=== PATIENT | male | born 1965 | race Caucasian/White ===

== ENCOUNTER 2020-11-05 15:51 | Inpatient (IN) | payer MEDICAID ==
[~2020-11-05] VITALS: Ht 177.8 cm; Wt 93.7 kg
[2020-11-05] MEDS ORDERED: HALOPERIDOL LACTATE 5 MG/ML VIAL IM ONE ×2 (16:45→21:15)
[2020-11-05] MEDS ORDERED: LORazepam 2 MG/ML VIAL IM ONE ×2 (16:45→21:15)
[2020-11-05] MEDS ORDERED: FLUO-191 PO (21:55)
[2020-11-05] MEDS ORDERED: CARI350T26 PO (21:55)
[2020-11-05] MEDS ORDERED: TAMS-13 PO (21:55)
[2020-11-05] MEDS ORDERED: PREG50 PO (21:55)
[2020-11-05] MEDS ORDERED: VENL-53 PO (21:55)
[2020-11-05] MEDS ORDERED: DIAZ5TAB5 PO (21:55)
[2020-11-05] MEDS ORDERED: HALOPERIDOL 5 MG TABLET PO PRN (22:15)
[2020-11-06 00:25] LABS: COVID AG,FIA SOURCE NASOPHARYNGEAL
[2020-11-06 07:45] LABS: APPEARANCE,URINE CLEAR (CLEAR); BILIRUBIN,URINE NEGATIVE (NEGATIVE); GLUCOSE, URINE (UA) NEGATIVE (NEGATIVE); KETONES,URINE NEGATIVE (NEGATIVE); LEUKOCYTE ESTERASE ,URINE NEGATIVE (NEGATIVE); NITRATE,URINE NEGATIVE (NEGATIVE); OCCULT BLOOD,URINE NEGATIVE (NEGATIVE); PH,URINE 6.5 (5.0-8.0); PROTEIN,URINE NEGATIVE (NEGATIVE)
[2020-11-06 07:49] LABS: AMPHET/METH SCREEN,URINE NEGATIVE (NEGATIVE); BARBITURATE SCREEN, URINE NEGATIVE (NEGATIVE); BENZODIAZEPINES SCREEN,URINE POSITIVE (NEGATIVE); CANNABINOID SCREEN,URINE POSITIVE (NEGATIVE); COCAINE SCREEN,URINE NEGATIVE (NEGATIVE); METHADONE SCREEN, URINE NEGATIVE (NEGATIVE); OPIATE SCREEN,URINE NEGATIVE (NEGATIVE)
[2020-11-06 07:53] LABS: PHENCYCLIDINE SCREEN,URINE NEGATIVE (NEGATIVE)
[2020-11-06 21:51] VITALS: BP 116/81
[2020-11-07] MEDS ORDERED: ALBUTEROL SULFATE HFA 90 MCG/PUFF 8 GM INHALER IH PRN (06:30)
[2020-11-07] MEDS ORDERED: PETROLATUM,WHITE 28 GM JELLY TP PRN (06:30)
[2020-11-07] MEDS ORDERED: LOPERAMIDE HCL 2 MG CAPSULE PO PRN (06:30)
[2020-11-07] MEDS ORDERED: DOCUSATE SODIUM 100 MG CAPSULE PO PRN (06:30)
[2020-11-07] MEDS ORDERED: MAG HYDROX/AL HYDROX/SIMETH ES 30 ML SUSPENSION UDCUP PO PRN (06:30)
[2020-11-07] MEDS ORDERED: GuaiFENesin/D-METHORPHAN [SUGAR-FREE] 200-20MG/10 ML SYRUP UDCUP PO PRN (06:30)
[2020-11-07] MEDS ORDERED: CloNIDine HCL 0.1 MG TABLET PO PRN (06:30)
[2020-11-07] MEDS ORDERED: ONDANSETRON HCL 4 MG TABLET PO PRN (06:30)
[2020-11-07] MEDS ORDERED: MAGNESIUM HYDROXIDE SUSPENSION 30 ML UDCUP PO PRN (06:30)
[2020-11-07 09:00] VITALS: BP 114/68
[2020-11-07] MEDS: VENLAFAXINE HCL 37.5 MG ER CAPSULE PO SCH ×2 (13:15→13:40)
[2020-11-07 16:17] VITALS: BP 119/79
[2020-11-07] MEDS: OLANZapine 5 MG TABLET PO SCH (16:42)
[2020-11-07] MEDS: FLUoxetine HCL 20 MG CAPSULE PO SCH (16:42)
[2020-11-07] MEDS: PREGABALIN 50 MG CAPSULE PO SCH (17:00)
[2020-11-07 20:35] VITALS: BP 118/78
[2020-11-07] MEDS: CARISOPRODOL 350 MG TABLET PO PRN (20:40)
[2020-11-07] MEDS: OxyCODONE HCL 10 MG ER TABLET PO PRN (20:43)
[2020-11-07] MEDS: TAMSULOSIN HCL 0.4 MG CAPSULE PO SCH (20:52)
[2020-11-08] MEDS: VENLAFAXINE HCL 37.5 MG ER CAPSULE PO SCH (07:50)
[2020-11-08] MEDS: PREGABALIN 50 MG CAPSULE PO SCH ×3 (07:53→17:30)
[2020-11-08] MEDS: OLANZapine 5 MG TABLET PO SCH ×2 (07:53→17:30)
[2020-11-08] MEDS: FLUoxetine HCL 20 MG CAPSULE PO SCH ×2 (07:53→17:30)
[2020-11-08] MEDS: CARISOPRODOL 350 MG TABLET PO PRN ×2 (07:55→17:38)
[2020-11-08] MEDS: OxyCODONE HCL 10 MG ER TABLET PO PRN ×2 (07:58→17:35)
[2020-11-08 08:20] VITALS: BP 120/80
[2020-11-08 17:11] VITALS: BP 117/76
[2020-11-08 17:45] VITALS: BP 120/76
[2020-11-08 18:35] VITALS: BP 118/80
[2020-11-08] MEDS: TAMSULOSIN HCL 0.4 MG CAPSULE PO SCH (20:41)
[2020-11-08 21:00] VITALS: BP 120/82
[2020-11-08] MEDS: IBUPROFEN 400 MG TABLET PO PRN (21:02)
[2020-11-08 22:00] VITALS: BP 117/76
[2020-11-09] MEDS: OxyCODONE HCL 10 MG ER TABLET PO PRN ×2 (07:08→18:05)
[2020-11-09] MEDS: CARISOPRODOL 350 MG TABLET PO PRN ×2 (07:15→19:30)
[2020-11-09 08:00] VITALS: BP 98/61
[2020-11-09] MEDS: OLANZapine 5 MG TABLET PO SCH ×2 (08:20→16:21)
[2020-11-09] MEDS: FLUoxetine HCL 20 MG CAPSULE PO SCH ×2 (08:20→16:21)
[2020-11-09] MEDS: VENLAFAXINE HCL 37.5 MG ER CAPSULE PO SCH (08:20)
[2020-11-09] MEDS: PREGABALIN 50 MG CAPSULE PO SCH ×3 (08:21→16:21)
[2020-11-09 18:05] VITALS: BP 110/66
[2020-11-09 19:30] VITALS: BP 108/64
[2020-11-09] MEDS: TAMSULOSIN HCL 0.4 MG CAPSULE PO SCH (20:51)
[2020-11-10 08:09] VITALS: BP 122/74
[2020-11-10] MEDS: VENLAFAXINE HCL 37.5 MG ER CAPSULE PO SCH (10:07)
[2020-11-10] MEDS: OLANZapine 5 MG TABLET PO SCH ×2 (10:10→17:08)
[2020-11-10] MEDS: CARISOPRODOL 350 MG TABLET PO PRN ×2 (10:10→21:42)
[2020-11-10] MEDS: FLUoxetine HCL 20 MG CAPSULE PO SCH ×2 (10:11→17:08)
[2020-11-10] MEDS: PREGABALIN 50 MG CAPSULE PO SCH ×3 (10:11→17:08)
[2020-11-10] MEDS: OxyCODONE HCL 10 MG ER TABLET PO PRN ×2 (10:18→20:26)
[2020-11-10] MEDS: IBUPROFEN 400 MG TABLET PO PRN (16:01)
[2020-11-10 16:19] VITALS: BP 120/79
[2020-11-10] MEDS: TAMSULOSIN HCL 0.4 MG CAPSULE PO SCH (20:26)
[2020-11-10 21:26] VITALS: BP 100/63
[2020-11-11 08:00] VITALS: BP 119/83
[2020-11-11] MEDS: CARISOPRODOL 350 MG TABLET PO PRN ×2 (08:16→17:45)
[2020-11-11] MEDS: VENLAFAXINE HCL 37.5 MG ER CAPSULE PO SCH (08:16)
[2020-11-11] MEDS: OxyCODONE HCL 10 MG ER TABLET PO PRN ×2 (08:17→17:45)
[2020-11-11] MEDS: FLUoxetine HCL 20 MG CAPSULE PO SCH ×2 (08:17→17:04)
[2020-11-11] MEDS: PREGABALIN 50 MG CAPSULE PO SCH ×3 (08:17→17:04)
[2020-11-11] MEDS: OLANZapine 5 MG TABLET PO SCH ×2 (08:17→17:04)
[2020-11-11 16:22] VITALS: BP 97/63
[2020-11-11 17:45] VITALS: BP 110/73
[2020-11-11] MEDS: TAMSULOSIN HCL 0.4 MG CAPSULE PO SCH (20:26)
[2020-11-12 05:05] VITALS: BP 115/65
[2020-11-12] MEDS: IBUPROFEN 400 MG TABLET PO PRN ×2 (05:05→20:56)
[2020-11-12] MEDS: OLANZapine 5 MG TABLET PO SCH ×2 (08:30→16:36)
[2020-11-12] MEDS: PREGABALIN 50 MG CAPSULE PO SCH ×3 (08:30→16:36)
[2020-11-12] MEDS: FLUoxetine HCL 20 MG CAPSULE PO SCH ×2 (08:30→16:35)
[2020-11-12] MEDS: VENLAFAXINE HCL 37.5 MG ER CAPSULE PO SCH (08:31)
[2020-11-12 08:52] VITALS: BP 104/67
[2020-11-12 09:13] LABS: COVID AG,FIA SOURCE NASOPHARYNGEAL
[2020-11-12 16:07] VITALS: BP 117/77
[2020-11-12] MEDS: OxyCODONE HCL 10 MG ER TABLET PO PRN (17:05)
[2020-11-12] MEDS: CARISOPRODOL 350 MG TABLET PO PRN (17:06)
[2020-11-12 17:10] VITALS: BP 115/70
[2020-11-12 18:17] VITALS: BP 112/78
[2020-11-12 20:45] VITALS: BP 115/75
[2020-11-12] MEDS: TAMSULOSIN HCL 0.4 MG CAPSULE PO SCH (20:54)
[2020-11-12] MEDS: ZOLPIDEM TARTRATE 10 MG TABLET PO PRN (23:50)
[2020-11-13 08:02] VITALS: BP 113/70
[2020-11-13] MEDS: OxyCODONE HCL 10 MG ER TABLET PO PRN (08:39)
[2020-11-13] MEDS: PREGABALIN 50 MG CAPSULE PO SCH ×3 (08:40→17:12)
[2020-11-13] MEDS: FLUoxetine HCL 20 MG CAPSULE PO SCH ×2 (08:40→17:11)
[2020-11-13] MEDS: OLANZapine 5 MG TABLET PO SCH ×2 (08:40→17:12)
[2020-11-13] MEDS: CARISOPRODOL 350 MG TABLET PO PRN (08:40)
[2020-11-13] MEDS: VENLAFAXINE HCL 37.5 MG ER CAPSULE PO SCH (08:42)
[2020-11-13 09:39] VITALS: BP 103/65
[2020-11-13] MEDS: IBUPROFEN 400 MG TABLET PO PRN ×2 (12:30→20:21)
[2020-11-13 16:02] VITALS: BP 114/76
[2020-11-13] MEDS: TAMSULOSIN HCL 0.4 MG CAPSULE PO SCH (20:18)
[2020-11-13 20:25] VITALS: BP 123/80
[2020-11-14 05:54] VITALS: BP 118/69
[2020-11-14] MEDS: IBUPROFEN 400 MG TABLET PO PRN (05:54)
[2020-11-14] MEDS: FLUoxetine HCL 20 MG CAPSULE PO SCH ×2 (08:06→17:56)
[2020-11-14] MEDS: VENLAFAXINE HCL 37.5 MG ER CAPSULE PO SCH (08:06)
[2020-11-14] MEDS: OLANZapine 5 MG TABLET PO SCH ×2 (08:06→17:56)
[2020-11-14] MEDS: PREGABALIN 50 MG CAPSULE PO SCH ×3 (08:06→17:56)
[2020-11-14 08:07] VITALS: BP 112/66
[2020-11-14] MEDS: OxyCODONE HCL 10 MG ER TABLET PO PRN (09:30)
[2020-11-14] MEDS: CARISOPRODOL 350 MG TABLET PO PRN (09:34)
[2020-11-14 16:04] VITALS: BP 114/78
[2020-11-14] MEDS: TAMSULOSIN HCL 0.4 MG CAPSULE PO SCH (20:08)
[2020-11-15 01:58] VITALS: BP 125/87
[2020-11-15] MEDS: OxyCODONE HCL 10 MG ER TABLET PO PRN ×3 (02:00→20:40)
[2020-11-15] MEDS: CARISOPRODOL 350 MG TABLET PO PRN ×3 (02:00→17:35)
[2020-11-15] MEDS: FOLIC ACID 1 MG TABLET PO SCH (07:43)
[2020-11-15] MEDS: THIAMINE 100 MG TABLET PO SCH (07:43)
[2020-11-15] MEDS: VENLAFAXINE HCL 37.5 MG ER CAPSULE PO SCH (07:43)
[2020-11-15] MEDS: OLANZapine 5 MG TABLET PO SCH ×2 (07:43→16:59)
[2020-11-15] MEDS: PREGABALIN 50 MG CAPSULE PO SCH ×3 (07:43→16:59)
[2020-11-15] MEDS: MULTIVITAMINS WITH MINERALS, THERAPEUTIC TABLET PO SCH (07:44)
[2020-11-15] MEDS: FLUoxetine HCL 20 MG CAPSULE PO SCH ×2 (07:44→16:59)
[2020-11-15 07:50] VITALS: BP 104/66
[2020-11-15] MEDS: IBUPROFEN 400 MG TABLET PO PRN ×2 (07:50→17:34)
[2020-11-15 17:31] VITALS: BP 112/77
[2020-11-15] MEDS: TAMSULOSIN HCL 0.4 MG CAPSULE PO SCH (20:40)
[2020-11-15 20:46] VITALS: BP 101/60
[2020-11-16 06:41] VITALS: BP 119/78
[2020-11-16] MEDS: IBUPROFEN 400 MG TABLET PO PRN (06:41)
[2020-11-16 08:15] VITALS: BP 137/85
[2020-11-16] MEDS: CARISOPRODOL 350 MG TABLET PO PRN (08:28)
[2020-11-16] MEDS: FOLIC ACID 1 MG TABLET PO SCH (08:29)
[2020-11-16] MEDS: FLUoxetine HCL 20 MG CAPSULE PO SCH ×2 (08:29→16:28)
[2020-11-16] MEDS: PREGABALIN 50 MG CAPSULE PO SCH ×3 (08:29→16:28)
[2020-11-16] MEDS: THIAMINE 100 MG TABLET PO SCH (08:29)
[2020-11-16] MEDS: VENLAFAXINE HCL 37.5 MG ER CAPSULE PO SCH (08:29)
[2020-11-16] MEDS: OLANZapine 5 MG TABLET PO SCH ×2 (08:31→16:28)
[2020-11-16] MEDS: MULTIVITAMINS WITH MINERALS, THERAPEUTIC TABLET PO SCH (08:31)
[2020-11-16] MEDS: OxyCODONE HCL 10 MG ER TABLET PO PRN (08:34)
[2020-11-16] MEDS: OxyCODONE HCL 20 MG ER TABLET PO PRN (15:56)
[2020-11-16 16:00] VITALS: BP 110/77
[2020-11-16] MEDS: TAMSULOSIN HCL 0.4 MG CAPSULE PO SCH (20:23)
[2020-11-17 06:53] VITALS: BP 115/71
[2020-11-17] MEDS: CARISOPRODOL 350 MG TABLET PO PRN ×2 (06:58→15:56)
[2020-11-17] MEDS: OxyCODONE HCL 20 MG ER TABLET PO PRN ×2 (06:59→15:56)
[2020-11-17] MEDS: FOLIC ACID 1 MG TABLET PO SCH (07:57)
[2020-11-17] MEDS: OLANZapine 5 MG TABLET PO SCH ×2 (07:58→16:37)
[2020-11-17] MEDS: THIAMINE 100 MG TABLET PO SCH (07:58)
[2020-11-17] MEDS: VENLAFAXINE HCL 37.5 MG ER CAPSULE PO SCH (07:58)
[2020-11-17] MEDS: MULTIVITAMINS WITH MINERALS, THERAPEUTIC TABLET PO SCH (07:58)
[2020-11-17] MEDS: PREGABALIN 50 MG CAPSULE PO SCH ×3 (07:58→16:36)
[2020-11-17] MEDS: FLUoxetine HCL 20 MG CAPSULE PO SCH ×2 (07:58→16:36)
[2020-11-17 08:00] VITALS: BP 123/86
[2020-11-17 15:34] VITALS: BP 115/75
[2020-11-17] MEDS: IBUPROFEN 400 MG TABLET PO PRN (15:56)
[2020-11-17 17:13] VITALS: BP 115/75
[2020-11-17] MEDS: TAMSULOSIN HCL 0.4 MG CAPSULE PO SCH (20:10)
[2020-11-18 08:00] VITALS: BP 139/84
[2020-11-18] MEDS: THIAMINE 100 MG TABLET PO SCH (08:21)
[2020-11-18] MEDS: VENLAFAXINE HCL 37.5 MG ER CAPSULE PO SCH (08:21)
[2020-11-18] MEDS: MULTIVITAMINS WITH MINERALS, THERAPEUTIC TABLET PO SCH (08:22)
[2020-11-18] MEDS: FOLIC ACID 1 MG TABLET PO SCH (08:22)
[2020-11-18] MEDS: FLUoxetine HCL 20 MG CAPSULE PO SCH ×2 (08:22→16:38)
[2020-11-18] MEDS: PREGABALIN 50 MG CAPSULE PO SCH ×3 (08:22→16:38)
[2020-11-18] MEDS: OLANZapine 5 MG TABLET PO SCH ×2 (08:23→16:38)
[2020-11-18 08:25] VITALS: BP 139/84
[2020-11-18] MEDS: CARISOPRODOL 350 MG TABLET PO PRN ×2 (08:29→19:57)
[2020-11-18] MEDS: OxyCODONE HCL 20 MG ER TABLET PO PRN ×2 (08:29→19:59)
[2020-11-18 16:47] VITALS: BP 125/81
[2020-11-18 19:57] VITALS: BP 115/77
[2020-11-18] MEDS: TAMSULOSIN HCL 0.4 MG CAPSULE PO SCH ×2 (19:58→20:05)
[2020-11-19 08:00] VITALS: BP 128/80
[2020-11-19 08:25] VITALS: BP 128/80
[2020-11-19] MEDS: FOLIC ACID 1 MG TABLET PO SCH (08:29)
[2020-11-19] MEDS: CARISOPRODOL 350 MG TABLET PO PRN ×2 (08:30→16:02)
[2020-11-19] MEDS: FLUoxetine HCL 20 MG CAPSULE PO SCH ×2 (08:30→16:02)
[2020-11-19] MEDS: PREGABALIN 50 MG CAPSULE PO SCH ×3 (08:30→16:02)
[2020-11-19] MEDS: MULTIVITAMINS WITH MINERALS, THERAPEUTIC TABLET PO SCH (08:30)
[2020-11-19] MEDS: OLANZapine 5 MG TABLET PO SCH ×2 (08:30→16:02)
[2020-11-19] MEDS: OxyCODONE HCL 20 MG ER TABLET PO PRN ×2 (08:30→16:03)
[2020-11-19] MEDS: THIAMINE 100 MG TABLET PO SCH (08:32)
[2020-11-19] MEDS: VENLAFAXINE HCL 37.5 MG ER CAPSULE PO SCH (08:32)
[2020-11-19] MEDS: IBUPROFEN 400 MG TABLET PO PRN (12:43)
[2020-11-19 16:00] VITALS: BP 106/65
[2020-11-19 16:13] VITALS: BP 106/65
[2020-11-19 16:18] VITALS: BP 106/65
[2020-11-19 17:00] VITALS: BP 110/68
[2020-11-19] MEDS: TAMSULOSIN HCL 0.4 MG CAPSULE PO SCH (20:15)
[2020-11-20] MEDS: FOLIC ACID 1 MG TABLET PO SCH (08:28)
[2020-11-20] MEDS: FLUoxetine HCL 20 MG CAPSULE PO SCH ×2 (08:28→16:41)
[2020-11-20] MEDS: MULTIVITAMINS WITH MINERALS, THERAPEUTIC TABLET PO SCH (08:28)
[2020-11-20] MEDS: THIAMINE 100 MG TABLET PO SCH (08:28)
[2020-11-20] MEDS: VENLAFAXINE HCL 37.5 MG ER CAPSULE PO SCH (08:28)
[2020-11-20] MEDS: PREGABALIN 50 MG CAPSULE PO SCH ×3 (08:28→16:41)
[2020-11-20] MEDS: OLANZapine 5 MG TABLET PO SCH ×2 (08:29→16:41)
[2020-11-20 08:50] VITALS: BP 124/70
[2020-11-20] MEDS: CARISOPRODOL 350 MG TABLET PO PRN ×2 (09:08→16:45)
[2020-11-20] MEDS: OxyCODONE HCL 20 MG ER TABLET PO PRN ×2 (09:08→20:12)
[2020-11-20] MEDS: IBUPROFEN 400 MG TABLET PO PRN ×2 (11:08→16:42)
[2020-11-20 16:03] VITALS: BP 110/74
[2020-11-20] MEDS: TAMSULOSIN HCL 0.4 MG CAPSULE PO SCH (20:12)
[2020-11-21] MEDS: OLANZapine 5 MG TABLET PO SCH ×2 (08:27→16:02)
[2020-11-21] MEDS: VENLAFAXINE HCL 37.5 MG ER CAPSULE PO SCH (08:27)
[2020-11-21] MEDS: MULTIVITAMINS WITH MINERALS, THERAPEUTIC TABLET PO SCH (08:27)
[2020-11-21] MEDS: FOLIC ACID 1 MG TABLET PO SCH (08:28)
[2020-11-21] MEDS: CARISOPRODOL 350 MG TABLET PO PRN ×2 (08:28→17:28)
[2020-11-21] MEDS: THIAMINE 100 MG TABLET PO SCH (08:28)
[2020-11-21] MEDS: PREGABALIN 50 MG CAPSULE PO SCH ×3 (08:28→16:02)
[2020-11-21] MEDS: OxyCODONE HCL 20 MG ER TABLET PO PRN ×2 (08:28→17:29)
[2020-11-21] MEDS: FLUoxetine HCL 20 MG CAPSULE PO SCH ×2 (08:28→16:02)
[2020-11-21 08:33] VITALS: BP 101/53
[2020-11-21] MEDS: IBUPROFEN 400 MG TABLET PO PRN (16:02)
[2020-11-21 16:05] VITALS: BP 109/67
[2020-11-21 17:44] LABS: COVID AG,FIA SOURCE NASOPHARYNGEAL
[2020-11-21 17:48] VITALS: BP 115/73
[2020-11-21] MEDS: TAMSULOSIN HCL 0.4 MG CAPSULE PO SCH (20:24)
[2020-11-22 02:44] VITALS: BP 112/70
[2020-11-22] MEDS: ZOLPIDEM TARTRATE 10 MG TABLET PO PRN ×2 (02:46→20:02)
[2020-11-22] MEDS: MULTIVITAMINS WITH MINERALS, THERAPEUTIC TABLET PO SCH (08:35)
[2020-11-22] MEDS: VENLAFAXINE HCL 37.5 MG ER CAPSULE PO SCH (08:35)
[2020-11-22] MEDS: CARISOPRODOL 350 MG TABLET PO PRN ×2 (08:35→16:32)
[2020-11-22] MEDS: FOLIC ACID 1 MG TABLET PO SCH (08:35)
[2020-11-22] MEDS: PREGABALIN 50 MG CAPSULE PO SCH ×3 (08:36→16:04)
[2020-11-22] MEDS: FLUoxetine HCL 20 MG CAPSULE PO SCH ×2 (08:36→16:04)
[2020-11-22] MEDS: OxyCODONE HCL 20 MG ER TABLET PO PRN ×2 (08:36→16:32)
[2020-11-22] MEDS: THIAMINE 100 MG TABLET PO SCH (08:36)
[2020-11-22] MEDS: OLANZapine 5 MG TABLET PO SCH ×2 (08:36→16:04)
[2020-11-22 12:55] VITALS: BP 95/60
[2020-11-22 16:17] VITALS: BP 98/70
[2020-11-22 16:34] VITALS: BP 104/63
[2020-11-22] MEDS: TAMSULOSIN HCL 0.4 MG CAPSULE PO SCH (20:01)
[2020-11-23] MEDS: MULTIVITAMINS WITH MINERALS, THERAPEUTIC TABLET PO SCH (08:21)
[2020-11-23] MEDS: VENLAFAXINE HCL 37.5 MG ER CAPSULE PO SCH (08:21)
[2020-11-23] MEDS: THIAMINE 100 MG TABLET PO SCH (08:22)
[2020-11-23] MEDS: FOLIC ACID 1 MG TABLET PO SCH (08:22)
[2020-11-23] MEDS: OLANZapine 5 MG TABLET PO SCH ×2 (08:22→17:18)
[2020-11-23] MEDS: FLUoxetine HCL 20 MG CAPSULE PO SCH ×2 (08:22→17:18)
[2020-11-23] MEDS: PREGABALIN 50 MG CAPSULE PO SCH ×3 (08:22→17:18)
[2020-11-23] MEDS: CARISOPRODOL 350 MG TABLET PO PRN ×2 (08:26→17:19)
[2020-11-23] MEDS: OxyCODONE HCL 20 MG ER TABLET PO PRN ×2 (08:26→20:32)
[2020-11-23 08:54] VITALS: BP 118/69
[2020-11-23 16:07] VITALS: BP 118/70
[2020-11-23] MEDS: NICOTINE 14 MG/24 HOUR PATCH TD PRN (17:54)
[2020-11-23 20:32] VITALS: BP 120/70
[2020-11-23] MEDS: TAMSULOSIN HCL 0.4 MG CAPSULE PO SCH (20:32)
[2020-11-24 03:54] VITALS: BP 113/72
[2020-11-24] MEDS: IBUPROFEN 400 MG TABLET PO PRN (03:57)
[2020-11-24 08:00] VITALS: BP 139/78
[2020-11-24] MEDS: PREGABALIN 50 MG CAPSULE PO SCH ×3 (09:27→16:49)
[2020-11-24] MEDS: MULTIVITAMINS WITH MINERALS, THERAPEUTIC TABLET PO SCH (09:27)
[2020-11-24] MEDS: FOLIC ACID 1 MG TABLET PO SCH (09:27)
[2020-11-24] MEDS: NICOTINE 14 MG/24 HOUR PATCH TD PRN (09:27)
[2020-11-24] MEDS: THIAMINE 100 MG TABLET PO SCH (09:27)
[2020-11-24] MEDS: OxyCODONE HCL 20 MG ER TABLET PO PRN ×2 (09:27→19:20)
[2020-11-24] MEDS: FLUoxetine HCL 20 MG CAPSULE PO SCH ×2 (09:27→16:50)
[2020-11-24] MEDS: OLANZapine 5 MG TABLET PO SCH ×2 (09:27→16:50)
[2020-11-24] MEDS: VENLAFAXINE HCL 37.5 MG ER CAPSULE PO SCH (09:27)
[2020-11-24] MEDS: CARISOPRODOL 350 MG TABLET PO PRN ×2 (09:27→19:20)
[2020-11-24 18:56] VITALS: BP 108/60
[2020-11-24] MEDS: TAMSULOSIN HCL 0.4 MG CAPSULE PO SCH (21:41)
[2020-11-25 08:00] VITALS: BP 116/71
[2020-11-25] MEDS: THIAMINE 100 MG TABLET PO SCH (09:00)
[2020-11-25] MEDS: MULTIVITAMINS WITH MINERALS, THERAPEUTIC TABLET PO SCH (09:15)
[2020-11-25] MEDS: CARISOPRODOL 350 MG TABLET PO PRN ×2 (09:15→18:54)
[2020-11-25] MEDS: FOLIC ACID 1 MG TABLET PO SCH (09:15)
[2020-11-25] MEDS: PREGABALIN 50 MG CAPSULE PO SCH ×3 (09:15→16:16)
[2020-11-25] MEDS: VENLAFAXINE HCL 37.5 MG ER CAPSULE PO SCH (09:15)
[2020-11-25] MEDS: OxyCODONE HCL 20 MG ER TABLET PO PRN ×2 (09:15→18:55)
[2020-11-25] MEDS: FLUoxetine HCL 20 MG CAPSULE PO SCH ×2 (09:15→16:16)
[2020-11-25] MEDS: OLANZapine 5 MG TABLET PO SCH ×2 (09:15→16:16)
[2020-11-25 16:00] VITALS: BP 133/66
[2020-11-25] MEDS: TAMSULOSIN HCL 0.4 MG CAPSULE PO SCH (20:18)
[2020-11-26 02:15] VITALS: BP 95/58
[2020-11-26 05:30] VITALS: BP 133/70
[2020-11-26] MEDS: IBUPROFEN 400 MG TABLET PO PRN (05:34)
[2020-11-26] MEDS: VENLAFAXINE HCL 37.5 MG ER CAPSULE PO SCH (10:02)
[2020-11-26] MEDS: CARISOPRODOL 350 MG TABLET PO PRN ×2 (10:05→19:59)
[2020-11-26] MEDS: FLUoxetine HCL 20 MG CAPSULE PO SCH ×2 (10:06→16:28)
[2020-11-26] MEDS: OLANZapine 5 MG TABLET PO SCH ×2 (10:06→16:28)
[2020-11-26] MEDS: PREGABALIN 50 MG CAPSULE PO SCH ×3 (10:07→16:28)
[2020-11-26] MEDS: THIAMINE 100 MG TABLET PO SCH (10:07)
[2020-11-26] MEDS: MULTIVITAMINS WITH MINERALS, THERAPEUTIC TABLET PO SCH (10:07)
[2020-11-26] MEDS: FOLIC ACID 1 MG TABLET PO SCH (10:07)
[2020-11-26 16:17] VITALS: BP 135/72
[2020-11-26] MEDS: OxyCODONE HCL 20 MG ER TABLET PO PRN (19:59)
[2020-11-26 20:00] VITALS: BP 129/79
[2020-11-26] MEDS: TAMSULOSIN HCL 0.4 MG CAPSULE PO SCH (20:02)
[2020-11-27 08:32] VITALS: BP 142/93
[2020-11-27] MEDS: VENLAFAXINE HCL 37.5 MG ER CAPSULE PO SCH (10:28)
[2020-11-27] MEDS: PREGABALIN 50 MG CAPSULE PO SCH ×3 (10:33→16:23)
[2020-11-27] MEDS: OxyCODONE HCL 20 MG ER TABLET PO PRN ×2 (10:33→18:44)
[2020-11-27] MEDS: FOLIC ACID 1 MG TABLET PO SCH (10:33)
[2020-11-27] MEDS: FLUoxetine HCL 20 MG CAPSULE PO SCH ×2 (10:33→16:23)
[2020-11-27] MEDS: THIAMINE 100 MG TABLET PO SCH (10:33)
[2020-11-27] MEDS: OLANZapine 5 MG TABLET PO SCH ×2 (10:33→16:22)
[2020-11-27] MEDS: CARISOPRODOL 350 MG TABLET PO PRN ×2 (10:33→18:44)
[2020-11-27] MEDS: MULTIVITAMINS WITH MINERALS, THERAPEUTIC TABLET PO SCH (10:34)
[2020-11-27] MEDS: LORazepam 2 MG TABLET PO PRN (14:06)
[2020-11-27 16:04] VITALS: BP 111/73
[2020-11-27] MEDS: TAMSULOSIN HCL 0.4 MG CAPSULE PO SCH (20:11)
[2020-11-27] MEDS: ZOLPIDEM TARTRATE 10 MG TABLET PO PRN (21:06)
[2020-11-28] MEDS: PREGABALIN 50 MG CAPSULE PO SCH ×3 (08:49→17:44)
[2020-11-28] MEDS: CARISOPRODOL 350 MG TABLET PO PRN ×2 (08:49→20:06)
[2020-11-28] MEDS: OLANZapine 5 MG TABLET PO SCH ×2 (08:49→17:44)
[2020-11-28] MEDS: VENLAFAXINE HCL 37.5 MG ER CAPSULE PO SCH (08:50)
[2020-11-28] MEDS: FOLIC ACID 1 MG TABLET PO SCH (08:50)
[2020-11-28] MEDS: OxyCODONE HCL 20 MG ER TABLET PO PRN ×2 (08:50→20:05)
[2020-11-28] MEDS: THIAMINE 100 MG TABLET PO SCH (08:50)
[2020-11-28] MEDS: MULTIVITAMINS WITH MINERALS, THERAPEUTIC TABLET PO SCH (08:50)
[2020-11-28] MEDS: FLUoxetine HCL 20 MG CAPSULE PO SCH ×2 (08:50→17:45)
[2020-11-28 16:00] VITALS: BP 116/79
[2020-11-28] MEDS: TAMSULOSIN HCL 0.4 MG CAPSULE PO SCH (20:06)
[2020-11-28] MEDS: ZOLPIDEM TARTRATE 10 MG TABLET PO PRN (21:04)
[2020-11-29 08:15] VITALS: BP 102/61
[2020-11-29] MEDS: MULTIVITAMINS WITH MINERALS, THERAPEUTIC TABLET PO SCH (09:17)
[2020-11-29] MEDS: THIAMINE 100 MG TABLET PO SCH (09:17)
[2020-11-29] MEDS: FOLIC ACID 1 MG TABLET PO SCH (09:17)
[2020-11-29] MEDS: CARISOPRODOL 350 MG TABLET PO PRN ×2 (09:17→20:28)
[2020-11-29] MEDS: OLANZapine 5 MG TABLET PO SCH ×2 (09:17→16:38)
[2020-11-29] MEDS: VENLAFAXINE HCL 37.5 MG ER CAPSULE PO SCH (09:17)
[2020-11-29] MEDS: PREGABALIN 50 MG CAPSULE PO SCH ×3 (09:17→16:38)
[2020-11-29] MEDS: FLUoxetine HCL 20 MG CAPSULE PO SCH ×2 (09:17→16:38)
[2020-11-29] MEDS: OxyCODONE HCL 20 MG ER TABLET PO PRN ×2 (09:18→20:28)
[2020-11-29 12:52] LABS: COVID AG,FIA SOURCE NASOPHARYNGEAL
[2020-11-29 16:51] VITALS: BP 116/79
[2020-11-29] MEDS: TAMSULOSIN HCL 0.4 MG CAPSULE PO SCH (20:26)
[2020-11-30] MEDS: FOLIC ACID 1 MG TABLET PO SCH (10:01)
[2020-11-30] MEDS: FLUoxetine HCL 20 MG CAPSULE PO SCH ×2 (10:01→16:14)
[2020-11-30] MEDS: OLANZapine 5 MG TABLET PO SCH ×2 (10:01→16:14)
[2020-11-30] MEDS: VENLAFAXINE HCL 37.5 MG ER CAPSULE PO SCH (10:01)
[2020-11-30] MEDS: THIAMINE 100 MG TABLET PO SCH (10:01)
[2020-11-30] MEDS: OxyCODONE HCL 20 MG ER TABLET PO PRN ×2 (10:01→20:51)
[2020-11-30] MEDS: MULTIVITAMINS WITH MINERALS, THERAPEUTIC TABLET PO SCH (10:02)
[2020-11-30] MEDS: CARISOPRODOL 350 MG TABLET PO PRN ×2 (10:02→16:14)
[2020-11-30] MEDS: PREGABALIN 50 MG CAPSULE PO SCH ×3 (10:03→16:14)
[2020-11-30 10:25] VITALS: BP 124/72
[2020-11-30 16:00] VITALS: BP 109/63
[2020-11-30] MEDS: TAMSULOSIN HCL 0.4 MG CAPSULE PO SCH (20:51)
[2020-12-01] MEDS: THIAMINE 100 MG TABLET PO SCH (08:22)
[2020-12-01] MEDS: PREGABALIN 50 MG CAPSULE PO SCH ×3 (08:22→16:08)
[2020-12-01] MEDS: FLUoxetine HCL 20 MG CAPSULE PO SCH ×2 (08:22→16:08)
[2020-12-01] MEDS: VENLAFAXINE HCL 37.5 MG ER CAPSULE PO SCH (08:22)
[2020-12-01] MEDS: MULTIVITAMINS WITH MINERALS, THERAPEUTIC TABLET PO SCH (08:22)
[2020-12-01] MEDS: OLANZapine 5 MG TABLET PO SCH ×2 (08:22→16:08)
[2020-12-01] MEDS: FOLIC ACID 1 MG TABLET PO SCH (08:22)
[2020-12-01] MEDS: OxyCODONE HCL 20 MG ER TABLET PO PRN ×2 (08:27→19:13)
[2020-12-01] MEDS: CARISOPRODOL 350 MG TABLET PO PRN ×2 (08:27→19:13)
[2020-12-01 09:06] VITALS: BP 110/60
[2020-12-01 16:00] VITALS: BP 107/69
[2020-12-01 19:13] VITALS: BP 110/74
[2020-12-01] MEDS: TAMSULOSIN HCL 0.4 MG CAPSULE PO SCH (20:27)
[2020-12-01] MEDS: ZOLPIDEM TARTRATE 10 MG TABLET PO PRN (21:43)
[2020-12-02] MEDS: MULTIVITAMINS WITH MINERALS, THERAPEUTIC TABLET PO SCH (10:09)
[2020-12-02] MEDS: THIAMINE 100 MG TABLET PO SCH (10:09)
[2020-12-02] MEDS: FOLIC ACID 1 MG TABLET PO SCH (10:09)
[2020-12-02] MEDS: PREGABALIN 50 MG CAPSULE PO SCH ×3 (10:09→18:08)
[2020-12-02] MEDS: OxyCODONE HCL 20 MG ER TABLET PO PRN ×2 (10:09→18:13)
[2020-12-02] MEDS: VENLAFAXINE HCL 37.5 MG ER CAPSULE PO SCH (10:10)
[2020-12-02] MEDS: CARISOPRODOL 350 MG TABLET PO PRN ×2 (10:10→18:15)
[2020-12-02] MEDS: FLUoxetine HCL 20 MG CAPSULE PO SCH ×2 (10:12→18:08)
[2020-12-02] MEDS: OLANZapine 5 MG TABLET PO SCH ×2 (10:13→18:08)
[2020-12-02 16:54] VITALS: BP 114/71
[2020-12-02] MEDS: TAMSULOSIN HCL 0.4 MG CAPSULE PO SCH (20:51)
[2020-12-02] MEDS: ZOLPIDEM TARTRATE 10 MG TABLET PO PRN (21:15)
[2020-12-03] MEDS: MULTIVITAMINS WITH MINERALS, THERAPEUTIC TABLET PO SCH (08:51)
[2020-12-03] MEDS: VENLAFAXINE HCL 37.5 MG ER CAPSULE PO SCH (08:51)
[2020-12-03] MEDS: THIAMINE 100 MG TABLET PO SCH (08:52)
[2020-12-03] MEDS: PREGABALIN 50 MG CAPSULE PO SCH ×3 (08:52→16:06)
[2020-12-03] MEDS: OLANZapine 5 MG TABLET PO SCH ×2 (08:52→16:05)
[2020-12-03] MEDS: FLUoxetine HCL 20 MG CAPSULE PO SCH ×2 (08:52→16:06)
[2020-12-03] MEDS: FOLIC ACID 1 MG TABLET PO SCH (08:52)
[2020-12-03] MEDS: OxyCODONE HCL 20 MG ER TABLET PO PRN ×2 (09:00→20:09)
[2020-12-03] MEDS: CARISOPRODOL 350 MG TABLET PO PRN ×2 (09:01→20:09)
[2020-12-03 16:59] VITALS: BP 106/63
[2020-12-03] MEDS: TAMSULOSIN HCL 0.4 MG CAPSULE PO SCH (20:09)
[2020-12-03 20:10] VITALS: BP 110/78
[2020-12-03] MEDS: ZOLPIDEM TARTRATE 10 MG TABLET PO PRN (21:09)
[2020-12-04] MEDS: VENLAFAXINE HCL 37.5 MG ER CAPSULE PO SCH (08:26)
[2020-12-04] MEDS: OLANZapine 5 MG TABLET PO SCH ×2 (08:27→16:13)
[2020-12-04] MEDS: CARISOPRODOL 350 MG TABLET PO PRN ×2 (08:27→20:57)
[2020-12-04] MEDS: OxyCODONE HCL 20 MG ER TABLET PO PRN ×2 (08:27→20:57)
[2020-12-04] MEDS: FLUoxetine HCL 20 MG CAPSULE PO SCH ×2 (08:27→16:13)
[2020-12-04] MEDS: FOLIC ACID 1 MG TABLET PO SCH (08:27)
[2020-12-04] MEDS: PREGABALIN 50 MG CAPSULE PO SCH ×3 (08:28→16:13)
[2020-12-04] MEDS: MULTIVITAMINS WITH MINERALS, THERAPEUTIC TABLET PO SCH (08:28)
[2020-12-04] MEDS: THIAMINE 100 MG TABLET PO SCH (08:28)
[2020-12-04 16:11] VITALS: BP 104/77
[2020-12-04] MEDS: TAMSULOSIN HCL 0.4 MG CAPSULE PO SCH (20:03)
[2020-12-04] MEDS: ZOLPIDEM TARTRATE 10 MG TABLET PO PRN (22:30)
[2020-12-05 08:38] VITALS: BP 132/82
[2020-12-05] MEDS: VENLAFAXINE HCL 37.5 MG ER CAPSULE PO SCH (09:18)
[2020-12-05] MEDS: OLANZapine 5 MG TABLET PO SCH ×2 (09:21→16:15)
[2020-12-05] MEDS: OxyCODONE HCL 20 MG ER TABLET PO PRN ×2 (09:21→19:58)
[2020-12-05] MEDS: PREGABALIN 50 MG CAPSULE PO SCH ×3 (09:21→16:15)
[2020-12-05] MEDS: CARISOPRODOL 350 MG TABLET PO PRN ×2 (09:21→19:58)
[2020-12-05] MEDS: FLUoxetine HCL 20 MG CAPSULE PO SCH ×2 (09:22→16:15)
[2020-12-05] MEDS: THIAMINE 100 MG TABLET PO SCH (09:22)
[2020-12-05] MEDS: FOLIC ACID 1 MG TABLET PO SCH (09:22)
[2020-12-05] MEDS: MULTIVITAMINS WITH MINERALS, THERAPEUTIC TABLET PO SCH (09:22)
[2020-12-05 18:11] VITALS: BP 125/88
[2020-12-05] MEDS: TAMSULOSIN HCL 0.4 MG CAPSULE PO SCH (20:00)
[2020-12-05] MEDS: ZOLPIDEM TARTRATE 10 MG TABLET PO PRN (20:53)
[2020-12-06] MEDS: VENLAFAXINE HCL 37.5 MG ER CAPSULE PO SCH (08:03)
[2020-12-06] MEDS: CARISOPRODOL 350 MG TABLET PO PRN ×2 (08:06→20:12)
[2020-12-06] MEDS: OLANZapine 5 MG TABLET PO SCH ×2 (08:06→16:44)
[2020-12-06] MEDS: FOLIC ACID 1 MG TABLET PO SCH (08:06)
[2020-12-06] MEDS: PREGABALIN 50 MG CAPSULE PO SCH ×3 (08:06→16:48)
[2020-12-06] MEDS: OxyCODONE HCL 20 MG ER TABLET PO PRN ×2 (08:06→20:12)
[2020-12-06] MEDS: FLUoxetine HCL 20 MG CAPSULE PO SCH ×2 (08:07→16:48)
[2020-12-06] MEDS: THIAMINE 100 MG TABLET PO SCH (08:08)
[2020-12-06] MEDS: MULTIVITAMINS WITH MINERALS, THERAPEUTIC TABLET PO SCH (08:08)
[2020-12-06 08:42] VITALS: BP 123/82
[2020-12-06] MEDS: LORazepam 2 MG TABLET PO PRN (09:26)
[2020-12-06 15:03] LABS: COVID AG,FIA SOURCE NASOPHARYNGEAL
[2020-12-06 16:35] VITALS: BP 101/62
[2020-12-06] MEDS: TAMSULOSIN HCL 0.4 MG CAPSULE PO SCH (20:12)
[2020-12-07 08:22] VITALS: BP 111/72
[2020-12-07] MEDS: OxyCODONE HCL 20 MG ER TABLET PO PRN ×2 (08:24→20:01)
[2020-12-07] MEDS: CARISOPRODOL 350 MG TABLET PO PRN ×2 (08:24→17:17)
[2020-12-07] MEDS: OLANZapine 5 MG TABLET PO SCH ×2 (08:24→17:17)
[2020-12-07] MEDS: THIAMINE 100 MG TABLET PO SCH (08:24)
[2020-12-07] MEDS: MULTIVITAMINS WITH MINERALS, THERAPEUTIC TABLET PO SCH (08:24)
[2020-12-07] MEDS: VENLAFAXINE HCL 37.5 MG ER CAPSULE PO SCH (08:25)
[2020-12-07] MEDS: FLUoxetine HCL 20 MG CAPSULE PO SCH ×2 (08:25→17:17)
[2020-12-07] MEDS: PREGABALIN 50 MG CAPSULE PO SCH ×3 (08:25→17:17)
[2020-12-07] MEDS: FOLIC ACID 1 MG TABLET PO SCH (08:25)
[2020-12-07 16:40] VITALS: BP 123/72
[2020-12-07] MEDS: TAMSULOSIN HCL 0.4 MG CAPSULE PO SCH (20:01)
[2020-12-07] MEDS: ZOLPIDEM TARTRATE 10 MG TABLET PO PRN (22:05)
[2020-12-08 02:31] VITALS: BP 123/78
[2020-12-08] MEDS: IBUPROFEN 400 MG TABLET PO PRN (02:35)
[2020-12-08 08:00] VITALS: BP 128/85
[2020-12-08] MEDS: THIAMINE 100 MG TABLET PO SCH (09:40)
[2020-12-08] MEDS: FOLIC ACID 1 MG TABLET PO SCH (09:40)
[2020-12-08] MEDS: CARISOPRODOL 350 MG TABLET PO PRN ×2 (09:41→20:04)
[2020-12-08] MEDS: MULTIVITAMINS WITH MINERALS, THERAPEUTIC TABLET PO SCH (09:41)
[2020-12-08] MEDS: PREGABALIN 50 MG CAPSULE PO SCH ×3 (09:41→16:07)
[2020-12-08] MEDS: OLANZapine 5 MG TABLET PO SCH ×2 (09:41→16:07)
[2020-12-08] MEDS: LORazepam 2 MG TABLET PO PRN (09:41)
[2020-12-08] MEDS: NICOTINE 14 MG/24 HOUR PATCH TD PRN (09:41)
[2020-12-08] MEDS: OxyCODONE HCL 20 MG ER TABLET PO PRN ×2 (09:41→20:03)
[2020-12-08] MEDS: FLUoxetine HCL 20 MG CAPSULE PO SCH ×2 (09:41→16:07)
[2020-12-08] MEDS: VENLAFAXINE HCL 37.5 MG ER CAPSULE PO SCH (09:45)
[2020-12-08 16:35] VITALS: BP 106/64
[2020-12-08] MEDS: TAMSULOSIN HCL 0.4 MG CAPSULE PO SCH (20:04)
[2020-12-09 04:50] VITALS: BP 102/64
[2020-12-09] MEDS: IBUPROFEN 400 MG TABLET PO PRN (04:58)
[2020-12-09] MEDS: LORazepam 2 MG TABLET PO PRN (04:58)
[2020-12-09] MEDS: MULTIVITAMINS WITH MINERALS, THERAPEUTIC TABLET PO SCH (11:30)
[2020-12-09] MEDS: PREGABALIN 50 MG CAPSULE PO SCH ×3 (11:30→17:31)
[2020-12-09] MEDS: VENLAFAXINE HCL 37.5 MG ER CAPSULE PO SCH (11:30)
[2020-12-09] MEDS: THIAMINE 100 MG TABLET PO SCH (11:30)
[2020-12-09] MEDS: FOLIC ACID 1 MG TABLET PO SCH (11:30)
[2020-12-09] MEDS: OLANZapine 5 MG TABLET PO SCH ×2 (11:30→17:31)
[2020-12-09] MEDS: CARISOPRODOL 350 MG TABLET PO PRN (11:30)
[2020-12-09] MEDS: FLUoxetine HCL 20 MG CAPSULE PO SCH ×2 (11:30→17:31)
[2020-12-09] MEDS: OxyCODONE HCL 20 MG ER TABLET PO PRN (11:30)
[2020-12-09 16:45] VITALS: BP 122/78
[2020-12-09] MEDS: TAMSULOSIN HCL 0.4 MG CAPSULE PO SCH (20:05)
[2020-12-09] MEDS: ZOLPIDEM TARTRATE 10 MG TABLET PO PRN (20:46)
[2020-12-10 08:10] VITALS: BP 111/73
[2020-12-10] MEDS: THIAMINE 100 MG TABLET PO SCH (09:01)
[2020-12-10] MEDS: MULTIVITAMINS WITH MINERALS, THERAPEUTIC TABLET PO SCH (09:01)
[2020-12-10] MEDS: FLUoxetine HCL 20 MG CAPSULE PO SCH ×2 (09:01→16:29)
[2020-12-10] MEDS: PREGABALIN 50 MG CAPSULE PO SCH ×3 (09:01→16:29)
[2020-12-10] MEDS: VENLAFAXINE HCL 37.5 MG ER CAPSULE PO SCH (09:01)
[2020-12-10] MEDS: OLANZapine 5 MG TABLET PO SCH ×2 (09:01→16:29)
[2020-12-10] MEDS: FOLIC ACID 1 MG TABLET PO SCH (09:01)
[2020-12-10 16:00] VITALS: BP 108/74
[2020-12-10 16:22] LABS: COVID AG,FIA SOURCE NASOPHARYNGEAL
[2020-12-10] MEDS: OxyCODONE HCL 20 MG ER TABLET PO PRN (16:33)
[2020-12-10] MEDS: CARISOPRODOL 350 MG TABLET PO PRN (16:33)
[2020-12-10] MEDS: ZOLPIDEM TARTRATE 10 MG TABLET PO PRN (20:17)
[2020-12-10] MEDS: TAMSULOSIN HCL 0.4 MG CAPSULE PO SCH (20:17)
[2020-12-11 08:24] VITALS: BP 109/67
[2020-12-11 08:27] VITALS: BP 109/67
[2020-12-11] MEDS: FOLIC ACID 1 MG TABLET PO SCH (08:34)
[2020-12-11] MEDS: MULTIVITAMINS WITH MINERALS, THERAPEUTIC TABLET PO SCH (08:34)
[2020-12-11] MEDS: OLANZapine 5 MG TABLET PO SCH (08:34)
[2020-12-11] MEDS: FLUoxetine HCL 20 MG CAPSULE PO SCH (08:34)
[2020-12-11] MEDS: VENLAFAXINE HCL 37.5 MG ER CAPSULE PO SCH (08:34)
[2020-12-11] MEDS: THIAMINE 100 MG TABLET PO SCH (08:34)
[2020-12-11] MEDS: PREGABALIN 50 MG CAPSULE PO SCH ×2 (08:35→12:37)
[2020-12-11] MEDS: OxyCODONE HCL 20 MG ER TABLET PO PRN (08:40)
[2020-12-11] MEDS: CARISOPRODOL 350 MG TABLET PO PRN (08:40)
[2020-12-11 09:06] LABS: ALANINE AMINOTRANSFERASE 49 U/L (12-78); ALBUMIN 3.4 g/dL (3.4-5.0); ALKALINE PHOSPHATASE 106 U/L (46-116); ANION GAP 9 mmol/L (8-16); ASPARTATE AMINOTRANSFERASE 32 U/L (15-37); BILIRUBIN,TOTAL 0.4 mg/dL (0.1-1.0); CALCIUM, TOTAL 8.6 mg/dL (8.8-10.5); CARBON DIOXIDE 26 mmol/L (22-29); CHLORIDE 101 mmol/L (98-107); CHOL/HDL RATIO 4.5 (4.2-7.3); CHOLESTEROL 157 mg/dL (131-200); CREATININE 0.63 mg/dL (0.60-1.30); GLOMERULAR FILTR. RATE CALC > 60 mL/min (>60); GLUCOSE,RANDOM 133 mg/dL (70-110); HDL CHOLESTEROL 35 mg/dL (40-60); LDL CHOL (CALC.) 104 mg/dL (0-130); POTASSIUM 4.1 mmol/L (3.5-5.1); SODIUM SERUM 136 mmol/L (136-145); TOTAL PROTEIN, SERUM 7.3 g/dL (6.4-8.2); TRIGLYCERIDES 89 mg/dL (15-150); UREA NITROGEN, BLOOD 13 mg/dL (7-18)
[2020-12-11] MEDS ORDERED: FOLI-130 PO (09:44)
[2020-12-11] MEDS ORDERED: THIA100T80 PO (09:44)
[2020-12-11] MEDS ORDERED: MULT-1239 PO (09:44)
[2020-12-11] MEDS ORDERED: OLAN5TAB2 PO (09:46)
== END 2020-12-11 13:30 | DRG 750 ==
LOC: EMS 15:51 → 3EC 11-06 20:14
PROVIDERS: ADMIT Psychiatry & Neurology Child & Adolescent Psychiatry; ATTEND Psychiatry & Neurology Child & Adolescent Psychiatry
DX: F20.0 Paranoid schizophrenia (principal); R45.851 Suicidal ideations; R45.850 Homicidal ideations; M54.9 Dorsalgia, unspecified; Z88.8 Allergy status to other drugs, medicaments and biological substances; N40.0 Benign prostatic hyperplasia without lower urinary tract symptoms; R10.13 Epigastric pain; Z99.3 Dependence on wheelchair; F10.10 Alcohol abuse, uncomplicated; F32.9 Major depressive disorder, single episode, unspecified; F12.10 Cannabis abuse, uncomplicated; Y90.9 Presence of alcohol in blood, level not specified; Z59.0 Homelessness; Z20.822 Contact with and (suspected) exposure to COVID-19
CPT/HCPCS: 80053; 80061; 81003; 87426; 97110; 97112; 97162; 97167; 97530; 97535; 99285; J1630; J2060

== ENCOUNTER 2022-05-12 19:20 | Emergency (ER) | payer MEDICAID, OTHER ==
[~2022-05-12] VITALS: Ht 177.8 cm; Wt 93.6 kg
[~2022-05-12 19:20] MED LIST: FLUO-177 PO; FOLI-130 PO; MULT-1239 PO; OLAN5TAB52 PO; PREG50 PO; TAMS-13 PO; THIA100T80 PO; VENL-53 PO
[2022-05-13 01:30] VITALS: BP 136/69
[2022-05-13] MEDS: IBUPROFEN 600 MG TABLET PO ONE ×2 (01:41→01:49)
== END 2022-05-13 02:30 | disposition home or self-care (01) ==
LOC: EMS 19:21
DX: F10.129 Alcohol abuse with intoxication, unspecified (principal); R45.851 Suicidal ideations; F20.9 Schizophrenia, unspecified; G89.29 Other chronic pain; I63.9 Cerebral infarction, unspecified; E11.9 Type 2 diabetes mellitus without complications; M54.9 Dorsalgia, unspecified; R45.1 Restlessness and agitation; Z88.5 Allergy status to narcotic agent
CPT/HCPCS: 82962; 99283